=== PATIENT | born 2000 | race Caucasian/White ===

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

== ENCOUNTER 2022-03-10 09:46 | Emergency (ER) | payer MEDICAID ==
[~2022-03-10] VITALS: Ht 170.2 cm; Wt 95.5 kg
[2022-03-10] MEDS ORDERED: DiphenhydrAMINE HCL 25 MG CAPSULE PO ONE (10:15)
[2022-03-10 10:27] VITALS: BP 123/82
== END 2022-03-10 11:21 | disposition home or self-care (01) ==
LOC: EMS 09:46
DX: L50.9 Urticaria, unspecified (principal); F41.9 Anxiety disorder, unspecified; F32.A Depression, unspecified; F90.9 Attention-deficit hyperactivity disorder, unspecified type; F84.0 Autistic disorder; Z86.59 Personal history of other mental and behavioral disorders
CPT/HCPCS: 99282; Z7502; Z7610